=== PATIENT | male | born 1990 | race Caucasian/White ===

== ENCOUNTER 2021-02-27 17:35 | Emergency (ER) | payer OTHER ==
[~2021-02-27] VITALS: Ht 182.9 cm; Wt 83.0 kg
[2021-02-27 17:35] VITALS: BP 115/69
--- NOTE | 2021-02-27 18:37 | RAD ---
XR EXAM OF ANKLE_LEFT 3V 02/27/2021 6:15 PM INDICATION: Trauma COMPARISON: None available. TECHNIQUE: 3 views of the left ankle are provided. FINDINGS/ IMPRESSION: There is no acute fracture or dislocation. Joint spaces are maintained. Bone mineralization is within normal limits. Lateral soft tissue swelling is identified along the ankle. There is no soft tissue g as or osseous erosion. No radiopaque foreign body. Tiny plantar calcaneal enthesophyte. Electronically signed by: Nilda Alejandre MD (02/27/2021 6:35 PM) HAROLDO
--- NOTE | 2021-02-27 18:52 | PHYS DOC ---
Past History Alcohol Use: None (SELENA CALDERON) General Adult EDM: Chief Complaint: ANKLE PROBLEM HPI: HPI: Patient is a 30 year old male who presents with left ankle pain since 1030 this morning. Patient states he was running a trail when he stepped on some uneven ground and injured his ankle. He states he does not believe he rolled his ankle rather stepped and twisted. Patient was able to ambulate over 3 miles directly after the injury. He denies any numbness or tingling to the wound. He has not attempted to ambulate after he left the trails. Patient denies any other trauma or pain. Patient has no other complaints at this time. (SELENA CALDERON) Review of Systems: Review of Systems: ROS negative except as mentioned in HPI. (SELENA CALDERON) Allergies: Allergies: Allergies Coded Allergies Type Severity Reaction Last Updated Verified No Known Drug Allergies 02/27/21 No (SELENA CALDERON) Physical Exam: PE: Constitutional: Well developed, well nourished, no acute distress, non-toxic appearance. Neck: Normal range of motion, no tenderness, supple, no stridor. Cardiovascular:Heart rate regular rhythm, no murmur. Lungs & Thorax: Bilateral breath sounds clear to auscultation. Skin: Warm, dry, no erythema, no rash. Back: No tenderness, no CVA tenderness. Extremities: Left lower extremity has swelling from mid riggins down to the ankle. It is currently wrapped in an Stephon bandage. On removal, he does have swelling surround the lateral malleolus. No bony tenderness. Remaining extremities have no tenderness, no cyanosis, no clubbing, ROM intact, no edema. Neurologic: Alert and oriented x3, normal motor function, normal sensory function, no focal deficits noted. (SELENA CALDERON) Current Patient Data: Vital Signs: Vital Signs Date Time Temp Pulse Resp B/P (MAP) Pulse Ox O2 Delivery O2 Flow Rate FiO2 02/27/21 17:35 70 14 115/69 (84) 97 Room Air (SELENA CALDERON) Radiology/Procedures: Radiology/Procedures: PROCEDURE: ANKLE LEFT 3V XR EXAM OF ANKLE_LEFT 3V 02/27/2021 6:15 PM INDICATION: Trauma COMPARISON: None available. TECHNIQUE: 3 views of the left ankle are provided. FINDINGS/ IMPRESSION: There is no acute fracture or dislocation. Joint spaces are maintained. Bone mineralization is within normal limits. Lateral soft tissue swelling is identified along the ankle. There is no soft tissue gas or osseous erosion. No r adiopaque foreign body. Tiny plantar calcaneal enthesophyte. Electronically signed by: Nilda Alejandre MD (02/27/2021 6:35 PM) [facility] (SELENA CALDERON) Heart Score: C/O Chest Pain: No (SELENA CALDERON) Course & Med Decision Making: Course & Med Decision Making Pertinent Labs and Imaging studies reviewed. (See chart for details) Patient history and presentation is not concerning for ankle fracture, however the patient would feel more reassured with x-ray images. Patient will be placed in an Stephon bandage and a splint. He does ask for a note as may require it as evidence for his visit today. Otherwise, patient is comfortable taking [id number] ibuprofen as needed for pain and inflammation. Patient will be discharged to home. (SELENA CALDERON) Dragon Disclaimer: Dragon Disclaimer: This electronic medical record was generated, in whole or in part, using a voice recognition dictation system. (SELENA CALDERON) Departure Departure: Impression: Primary Impression: High ankle sprain of left lower extremity Referrals: PCP,UNKNOWN (PCP) Patient Instructions: RICE - Routine Care for Injuries, [id number] Additional Instructions: [place] you are able. As discussed, [facility] will provide you with orthopedic referral for further evaluation of your ankle sprain. Bear weight as tolerated. If your pain worsens or you develop signs of compartment syndrome (pale/cold skin, lack of pulses, numbness tingling) please return to the department. SELENA CALDERON Feb 27, 2021 18:52 ANDREA CARY MD Mar 03, 2021 00:22
== END 2021-02-27 19:00 | disposition home or self-care (01) ==
LOC: ER 17:35
DX: S93.402A Sprain of unspecified ligament of left ankle, initial encounter (principal); W22.8XXA Striking against or struck by other objects, initial encounter; Y93.89 Activity, other specified; Y92.89 Other specified places as the place of occurrence of the external cause; Y99.8 Other external cause status
CPT/HCPCS: 29515; 73610; 99283